=== PATIENT | female | born 1950 | race Hispanic/Latino ===

== ENCOUNTER → 2019-05-02 | Outpatient (CLI) | payer OTHER | END | disposition home or self-care (01) | LOC: OIH 13:59 | PROVIDERS: ATTEND Internal Medicine | DX: M20.031 Swan-neck deformity of right finger(s) (principal); M15.4 Erosive (osteo)arthritis; M85.841 Other specified disorders of bone density and structure, right hand; M85.842 Other specified disorders of bone density and structure, left hand; M79.89 Other specified soft tissue disorders | CPT/HCPCS: 73130 ==